=== PATIENT | female | born 1975 | race Two or more races ===

== ENCOUNTER 2025-06-06 21:49 | Emergency (ER) | payer OTHER, MEDICAID ==
[~2025-06-06] VITALS: Ht 157.5 cm; Wt 150.0 kg
--- NOTE | 2025-06-06 23:21 | ED.PDOC ---
History of Present Illness HPI Comments 49-year-old female who came to ER via EMS for ingestion. Patient states about 7:00 p.m. today, he took 1 gummy laced with marijuana, and shortly afterwards he has started having generalized body cramping, spasms, shortness of breath, thirst, dry mouth. Admits that she also took a shot of tomasz as well. Patient has taken marijuana before but this kind of reaction never happened REVIEW OF SYSTEMS: General: No fever, no chills, or fatigue HEENT: No sore throat, no earache, no congestion, no neck pain. Cardiac: + chest pain. No palpitations. Lungs: + shortness of breath, no cough. GI: No nausea, no vomiting, no diarrhea, no constipation, no abdominal pain : No dysuria, frequency, or urgency. No hematuria. Musculoskeletal: No joint pain , no joint swelling, no extremity edema. (+) generalized cramping pain Skin: No rash, no itching. Neuro: No headache, no dizziness, no weakness EXAM: General: Patient initially appears lethargic however she is a easily aroused. No acute distress. Skin: Skin in warm, dry and intact. Appropriate color for ethnicity. HEENT: The head is normocephalic and atraumatic. Conjunctivae are clear without exudates or hemorrhage. Sclera is non-icteric. EOM are intact. No signs of nystagmus. Eyelids are normal in appearance without swelling or lesions. Oral mucosa is pink and moist Neck: The neck is supple with normal range of motion. No JVD. Cardiac: Heart rate and rhythm are normal. No murmurs, gallops, or rubs are auscultated. Respiratory: No signs of respiratory distress. Lung sounds are clear in all lobes bilaterally without rales, rhonchi, or wheezes. Abdominal: Abdomen is soft, non-tender without distention. Bowel sounds are present and normoactive in all four quadrants. Extremities: Upper and lower extremities are atraumatic in appearance without deformity or edema. Neurological: The patient is awake, alert and oriented to person, place, and time with normal speech. Speech is clear. There is no facial asymmetry. Psychiatric: Patient is anxious appearing. Chief Complaint: Ingestion Time Seen by MD: 23:20 Reviewed Notes: Film Touch Up Inspector Notes Allergies: Coded Allergies: NO KNOWN ALLERGIES (Unverified , 06/06/25) Information Source: Patient Mode of Arrival: EMS Past Medical History PAST MEDICAL HISTORY: Asthma, COPD Surgical History: Denies all surgeries MOUNTER SAXOPHONES History: Denies all MOUNTER SAXOPHONES Hx Family History Family History: Reviewed,noncontributory to illness Social History Smoker: Non-Smoker Alcohol: Occasionally Drugs: Marijuana Lives In: Home Was a procedure done? Was a procedure done?: No Differential Dx Considerations may include: Anxiety, COPD, asthma, overdose, other X-Ray, Labs, Meds, VS Vital Signs Date Time Temp Pulse Resp B/P (MAP) Pulse Ox O2 Delivery O2 Flow Rate FiO2 06/07/25 06:23 97.7 66 12 114/75 (88) 99 97.7 06/07/25 02:00 98.0 82 16 133/81 (98) 98 98.0 06/07/25 02:00 Room Air* 0 21 06/07/25 01:32 20 92 Nasal Cannula* 3 32 06/06/25 21:59 91 06/06/25 21:50 98.3 90 18 142/90 97 98.3 Lab Test 06/07/25 03:00 06/07/25 01:15 06/07/25 00:15 Range/Units Troponin I High Sensitivity < 3 L < 3 L < 3 L </=34 ng/L White Blood Count 6.6 4.4-10.8 10^3/uL Red Blood Count 4.31 4.0-5.20 10^6/uL Hemoglobin 11.3 L 12.2-16.2 g/dL Hematocrit 35.5 L 36.0-46.0 % Mean Corpuscular Volume 82.4 80.0-100.0 fL Mean Corpuscular Hemoglobin 26.2 L 28.0-32.0 pg Mean Corpuscular Hemoglobin Concent 31.8 L 32.0-36.0 g/dL Red Cell Distribution Width 13.6 11.8-14.3 % Platelet Count 240 140-450 10^3/uL Mean Platelet Volume 8.7 6.9-10.8 fL Neutrophils (%) (Auto) 71.6 37.0-80.0 % Lymphocytes (%) (Auto) 17.9 10.0-50.0 % Monocytes (%) (Auto) 9.7 0.0-12.0 % Eosinophils (%) (Auto) 0.2 0.0-7.0 % Basophils (%) (Auto) 0.6 0.0-2.0 % Neutrophils # (Auto) 4.7 1.6-8.6 10 ^3/uL Lymphocytes # (Auto) 1.2 0.4-5.4 10 ^3/uL Monocytes # (Auto) 0.6 0-1.3 10 ^3/uL Eosinophils # (Auto) 0 0-0.8 10 ^3/uL Basophils # (Auto) 0 0-0.2 10 ^3/uL Nucleated Red Blood Cells 0.2 % Sodium Level 140 136-145 mmol/L Potassium Level 4.2 3.5-5.1 mmol/L Chloride Level 103 98-107 mmol/L Carbon Dioxide Level 28 20-31 mmol/L Anion Gap 9 5-15 Blood Urea Nitrogen 15 9-23 mg/dL Creatinine 0.84 0.550-1.02 mg/dL Glomerular Filtration Rate Calc 84 >90 mL/min BUN/Creatinine Ratio 17.9 10.0-20.0 Serum Glucose 107 H 74-106 mg/dL Calcium Level 9.0 8.7-10.4 mg/dL B-Type Natriuretic Peptide 23.78 0-100 pg/mL Current Medications Medications (Trade) Dose Ordered Sig/Yojana Route Start Time Stop Time Status Last Admin Alprazolam (Xanax Tablet) 0.5 mg ONCE ONCE PO 06/07/25 00:00 06/07/25 00:02 DC 06/07/25 02:07 Albuterol (Ventolin Medneb) 2.5 mg ONCE ONCE NEB 06/07/25 00:00 06/07/25 00:02 DC 06/07/25 01:32 CHEST RADIOGRAPH Indication: Chest tightness, shortness of breath Technique: Single frontal view of the chest was obtained COMPARISON: XR CHEST 1 VIEW on DOS: 05/23/24, CR CHEST 2 VIEW on DOS: 05/16/24, XR CHEST 1 VIEW on DOS: 12/30/22, CH-CHEST 1V on DOS: 07/02/19 FINDINGS: Lines and Tubes: None Lungs: Moderate diffuse increased prominence of the pulmonary vasculature. No evidence of focal consolidation. Pleura: No effusion. No pneumothorax. Cardiomediastinal contours: Unremarkable Bones: Unremarkable IMPRESSION: 1. Moderate pulmonary vascular congestion. Time of 1ST Reevaluation: 23:16 Reevaluation 1ST: Unchanged Patient Education/Counseling: Need For Follow Up Family Education/Counseling: No Family Present SEPSIS Sepsis Screen Date sepsis recognized/suspect: Jun 06, 2025 Time Sepsis recognized/suspect: 2149 Recent Procedure: No On Antibiotic Therapy: No Respiratory Rate >20: No Heart Rate >90: No Temp<36 C (96.8 F) or >38.3 C: No SBP <90 or MAP <65 mmHG: No New Acute Mental Status Change: No Is the patient on CPAP, BIPAP,: No Physician Orders Chest Xray 1 View (06/07/25 00:00) Vital Signs Date Time Temp Pulse Resp B/P (MAP) Pulse Ox O2 Delivery O2 Flow Rate FiO2 06/07/25 06:23 97.7 66 12 114/75 (88) 99 97.7 06/07/25 02:00 98.0 82 16 133/81 (98) 98 98.0 06/07/25 02:00 Room Air* 0 21 06/07/25 01:32 20 92 Nasal Cannula* 3 32 06/06/25 21:59 91 06/06/25 21:50 98.3 90 18 142/90 97 98.3 Laboratory Tests Test 06/07/25 00:15 White Blood Count 6.6 10^3/uL (4.4-10.8) Medications Medications Dose Ordered Sig/Yojana Route Start Time Stop Time Status Last Admin Dose Admin Albuterol 2.5 mg ONCE ONCE NEB 06/07/25 00:00 06/07/25 00:02 DC 06/07/25 01:32 Alprazolam 0.5 mg ONCE ONCE PO 06/07/25 00:00 06/07/25 00:02 DC 06/07/25 02:07 Departure 1 Departure Time of Disposition: 07:46 (Patient is now clinically sober. Patient would like to go home. We will discharge patient home with outpatient follow up) Impression: Primary Impression: Shortness of breath Additional Impression: Polysubstance abuse Disposition: 01 HOME / SELF CARE / HOMELESS Condition: Stable Additional Instructions: ED DISCHARGE INSTRUCTIONS Instructions: Please read all instructions provided in this packet carefully. Although you have been discharged from the Emergency Department, this does not mean that you have a "clean bill of health". No definitive diagnosis for your symptoms has been made today. It is possible that you are in the process of developing a serious illness. This is why you must return to the ED without fail if any new or worsening symptoms (especially if your symptoms include chest pain, trouble breathing, abdominal pain, fever, headache, confusion, trouble seeing, or trouble walking) It is also very important that you see a primary care provider (PCP) within the next 1-3 days to follow up. If you are unable to get an appointment, return to the ED for re-evaluation. SHORTNESS OF BREATH EDUCATION Shortness of breath has many causes. Sometimes conditions such as anxiety can lead to shortness of breath. Some people get mild shortness of breath when they exercise. Trouble breathing also can be a symptom of a serious problem, such as asthma, lung disease, emphysema, heart problems, and pneumonia. If your shortness of breath continues, you may need tests and treatment. Watch for any changes in your breathing and other symptoms. Follow-up care is a benton part of your treatment and safety. Be sure to make and go to all appointments, and call your doctor if you are having problems. It's also a good idea to know your test results and keep a list of the medicines you take. How can you care for yourself at home? Do not smoke or allow others to smoke around you. If you need help quitting, talk to your doctor about stop-smoking programs and medicines. These can increase your chances of quitting for good. Get plenty of rest and sleep. Take your medicines exactly as prescribed. Call your doctor if you think you are having a problem with your medicine. Find healthy ways to deal with stress. Exercise daily. Get plenty of sleep. Eat regularly and well. When should you call for help? Call 911 anytime you think you may need emergency care. For example, call if: You have severe shortness of breath. You have symptoms of a heart attack. These may include: Chest pain or pressure, or a strange feeling in the chest. Sweating. Shortness of breath. Nausea or vomiting. Pain, pressure, or a strange feeling in the back, neck, jaw, or upper belly or in one or both shoulders or arms. Lightheadedness or sudden weakness. A fast or irregular heartbeat. After you call 911, the ediphone operator may tell you to chew 1 adult-strength or 2 to 4 low-dose aspirin. Wait for an ambulance. Do not try to drive yourself. Call your doctor now or seek immediate medical care if: Your shortness of breath gets worse or you start to wheeze. Wheezing is a high- pitched sound when you breathe. You wake up at night out of breath or have to prop your head up on several pillows to breathe. You are short of breath after only light activity or while at rest. Watch closely for changes in your health, and be sure to contact your doctor if: You do not get better over the next 1 to 2 days. Credits for Shortness of Breath: Care Instructions Current as of: February 15, 2024 Author: RENATE Kern Staff CHEST PAIN EDUCATION There are many things that can cause chest pain. Some are not serious and will get better on their own in a few days. But some kinds of chest pain need more testing and treatment. Your doctor may have recommended a follow-up visit in the next few days. If you are not getting better, you may need more tests or treatment. Even though your doctor has released you, you still need to watch for any problems. The doctor carefully checked you, but sometimes problems can develop later. If you have new symptoms or if your symptoms do not get better, get m edical care right away. If you have worse or different chest pain or pressure that lasts more than 5 minutes or you passed out (lost consciousness), call 911 or seek other emergency help right away. A medical visit is only one step in your treatment. Even if you feel better, you still need to do what your doctor recommends, such as going to all suggested follow-up appointments and taking medicines exactly as directed. This will help you recover and help prevent future problems. How can you care for yourself at home? Rest until you feel better. Take your medicine exactly as prescribed. Call your doctor if you think you are having a problem with your medicine. Do not drive after taking a prescription pain medicine. When should you call for help? Call 911 if: You passed out (lost consciousness). You have severe difficulty breathing. You have symptoms of a heart attack. These may include: Chest pain or pressure, or a strange feeling in your chest. Sweating. Shortness of breath. Nausea or vomiting. Pain, pressure, or a strange feeling in your back, neck, jaw, or upper belly or in one or both shoulders or arms. Lightheadedness or sudden weakness. A fast or irregular heartbeat. After you call 911, the ediphone operator may tell you to chew 1 adult-strength or 2 to 4 low-dose aspirin. Wait for an ambulance. Do not try to drive yourself. Call your doctor now or seek immediate medical care if: You have any trouble breathing. You have new or different chest pain. You are dizzy or lightheaded, or you feel like you may faint. Watch closely for changes in your health, and be sure to contact your doctor if you do not get better as expected. Current as of: February 15, 2024 Author: [employer] Staff? Comments 49-year-old female presenting with anxiety, shortness of breath, chest tightness after THC ingestion. Patient reports symptoms are improved. Lab and imaging results reviewed. Patient is saturating well on room air, no respiratory distress. Serial EKG and troponin negative. Patient well-appearing, nontoxic. Advised prompt follow-up with PCP, return to the ED with any new, worsening or concerning symptoms. Critical Care Note Critical Care Time?: No Stability Stability form required: No Heart Score Heart Score: Heart Score Response (Comments) Value History N/A 0 EKG N/A 0 Age N/A 0 Risk Factors N/A 0 Troponin N/A 0 Total 0 I personally scribed for GABRIELLA PEACOCK MD ([email or web address]) on 06/06/25 at 23:21. Electronically submitted by Tereso Sears (RxResults). I personally scribed for GABRIELLA PEACOCK MD ([email or web address]) on 06/07/25 at 02:33. Electronically submitted by Tereso Sears (RxResults). GABRIELLA PEACOCK MD Jun 06, 2025 23:21 WILLIAM SCHAEFER MD Jun 07, 2025 07:48
[2025-06-07 00:30] LABS: Hemoglobin 11.3 g/dL (12.2-16.2)
[2025-06-07] MEDS: ALBUTEROL SULF 2.5 MG/0.5ML(0.5%) NEB SOLN ONE (00:30)
[2025-06-07 00:31] LABS: Hematocrit 35.5 % (36.0-46.0); Mean Corpuscular Hemoglobin 26.2 pg (28.0-32.0); Mean Corpuscular Volume 82.4 fL (80.0-100.0); Nucleated Red Blood Cells % 0.2 %
[2025-06-07 00:38] LABS: Chloride 103 mmol/L (98-107); Potassium 4.2 mmol/L (3.5-5.1); Sodium 140 mmol/L (136-145)
[2025-06-07 00:39] LABS: Anion Gap 9 (5-15); Calcium 9.0 mg/dL (8.7-10.4); Carbon Dioxide 28 mmol/L (20-31)
[2025-06-07 00:44] LABS: BUN/Creatinine Ratio 17.9 (10.0-20.0); Blood Urea Nitrogen 15 mg/dL (9-23)
--- NOTE | 2025-06-07 00:49 | ECG ---
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
[2025-06-07 00:55] LABS: Glucose 107 mg/dL (74-106)
--- NOTE | 2025-06-07 01:07 | DVH ---
CHEST RADIOGRAPH Indication: Chest tightness, shortness of breath Technique: Single frontal view of the chest was obtained COMPARISON: XR CHEST 1 VIEW on DOS: 05/23/24, CR CHEST 2 VIEW on DOS: 05/16/24, XR CHEST 1 VIEW on DOS: 12/30/22, CH-CHEST 1V on DOS: 07/02/19 FINDINGS: Lines and Tubes: None Lungs: Moderate diffuse increased prominence of the pulmonary vasculature. No evidence of focal consolidation. Pleura: No effusion. No pneumothorax. Cardiomediastinal contours: Unremarkable Bones: Unremarkable IMPRESSION: 1. Moderate pulmonary vascular congestion.
[2025-06-07] MEDS: ALBUTEROL SULF 2.5 MG/0.5ML(0.5%) NEB SOLN NEB ONE (01:32)
[2025-06-07] MEDS: ALPRAZolam 0.5 MG TAB PO ONE (02:07)
[2025-06-07] MEDS ORDERED: ALPRAZolam 0.5 MG TAB ONE (02:07)
[2025-06-07 08:57] VITALS: BP 117/66; PULSE 65; RESP 18; TEMP 98.4; O2SAT 95
== END 2025-06-07 08:56 | disposition home or self-care (01) ==
LOC: ER 21:49 → EDBD 21:49 → ER 06-07 08:56
DX: R06.02 Shortness of breath (principal); F19.10 Other psychoactive substance abuse, uncomplicated; R68.2 Dry mouth, unspecified; R07.89 Other chest pain; J44.89 Other specified chronic obstructive pulmonary disease
CPT/HCPCS: 36415; 71045; 80048; 83880; 84484; 85025; 93005; 94640